=== PATIENT | female | born 1985 | race Two or more races ===

== ENCOUNTER 2023-11-04 21:23 | Emergency (ER) | payer MEDICAID, OTHER ==
[~2023-11-04] VITALS: Ht 162.6 cm; Wt 100.0 kg
[2023-11-04 22:14] VITALS: BP 143/90; PULSE 87; RESP 18; TEMP 98.7; O2SAT 99
[2023-11-05] MEDS: KETOROLAC TROMETH 60MG/2ML VIAL IM ONE (00:44)
== END 2023-11-05 00:45 | disposition home or self-care (01) ==
LOC: ER 21:23
DX: S93.492A Sprain of other ligament of left ankle, initial encounter (principal); S93.491A Sprain of other ligament of right ankle, initial encounter; W01.0XXA Fall on same level from slipping, tripping and stumbling without subsequent striking against object, initial encounter; Y93.89 Activity, other specified; Y92.89 Other specified places as the place of occurrence of the external cause; Y99.8 Other external cause status
CPT/HCPCS: 96372; 99283; J1885